=== PATIENT | male | born 1945 | race Asian ===

== ENCOUNTER 2018-07-16 16:50 | Inpatient (IN) | payer OTHER, MEDICARE ==
[~2018-07-16] VITALS: Ht 165.1 cm; Wt 65.3 kg
[2018-07-16 18:02] LABS: BASOPHILS # (AUTO) 0.02 x10^3/uL (0-0.1); BASOPHILS % (AUTO) 0 % (0-1); EOSINOPHILS # (AUTO) 0.09 x10^3/uL (0-0.4); EOSINOPHILS % (AUTO) 1 % (1-7); LYMPHOCYTES # (AUTO) 1.46 x10^3/uL (1-3.4); LYMPHOCYTES % (AUTO) 22 % (22-44); MD NO; MEAN CORPUSCULAR HEMOGLOBIN 30.9 pg (27.5-34.5); MEAN CORPUSCULAR HGB CONC 33.6 g/dL (33.2-36.2); MEAN CORPUSCULAR VOLUME 91.8 fL (81-97); MEAN PLATELET VOLUME 7.1 fL (7.4-10.4); MONOCYTES # (AUTO) 0.68 x10^3/uL (0.2-0.8); MONOCYTES % (AUTO) 10 % (2-9); NEUTROPHILS # (AUTO) 4.52 x10^3/uL (1.8-6.8); NEUTROPHILS % (AUTO) 67 % (42-75); PLATELET COUNT 210 x10^3/uL (130-400); RED BLOOD COUNT 4.54 x10^6/uL (4.38-5.82); RED CELL DISTRIBUTION WIDTH 13.6 % (9.4-14.8)
[2018-07-16 18:11] LABS: ALBUMIN 3.9 g/dL (3.4-5.0); ANION GAP 9 mmol/L (5-15); CALCIUM 8.3 mg/dL (8.5-10.1); CHLORIDE 106 mmol/L (98-107)
[2018-07-16 18:16] LABS: ALANINE AMINOTRANSFERASE 40 U/L (12-78); ALKALINE PHOSPHATASE 43 U/L (45-117); BILIRUBIN,TOTAL 0.5 mg/dL (0.2-1.0); CREATININE 0.89 mg/dL (0.7-1.3); TOTAL PROTEIN 7.1 g/dL (6.4-8.2); TROPONIN I < 0.015 ng/mL (0.000-0.045)
[2018-07-16 18:24] LABS: MICROSCOPIC NOT IND
[2018-07-16] MEDS ORDERED: DEXTROSE 50%, 50ML SYRINGE ONE (18:29)
[2018-07-16 18:30] LABS: CULTURE INDICATED? NO
[2018-07-16] MEDS ORDERED: DEXTROSE 50%, 50ML SYRINGE IVPush ONE (18:30)
[2018-07-16] MEDS ORDERED: D5%-0.45% NACL 1,000 ML IV SCH ×2 (19:30)
[2018-07-16] MEDS ORDERED: METF500T17 PO (20:02)
[2018-07-16] MEDS ORDERED: HIGH CHOLESTEROL (20:02)
[2018-07-16] MEDS ORDERED: LISI-170 PO (20:02)
[2018-07-16] MEDS ORDERED: DEXTROSE 50%, 50ML SYRINGE IVPush PRN (21:00)
[2018-07-16] MEDS ORDERED: DEXTROSE 4 GM TAB.CHEW PO PRN (21:00)
[2018-07-16] MEDS ORDERED: GLUCAGON 1 MG IM PRN (21:00)
[2018-07-16] MEDS ORDERED: hydrALAzine 20 MG/ML, 1ML IVPush PRN (21:00)
[2018-07-16] MEDS ORDERED: ONDANSETRON ODT 4 MG PO PRN (21:00)
[2018-07-16] MEDS ORDERED: DOCUSATE 100 MG CAPSULE PO PRN (21:00)
[2018-07-16 21:31] LABS: HEMOGLOBIN A1C 6.5 % (4.2-6.3)
[2018-07-16] MEDS: SODIUM CHLORIDE FLUSH 10ML SYR IVF SCH (21:43)
[2018-07-16] MEDS: D5%-0.45% NACL 1,000 ML IV SCH (21:43)
[2018-07-16] MEDS: ENOXAPARIN 40 MG/0.4 ML SQ SCH (21:44)
[2018-07-16 21:46] VITALS: BP 128/72
[2018-07-16 22:52] VITALS: BP 128/72
[2018-07-17 00:05] VITALS: BP 171/79
[2018-07-17 00:52] VITALS: BP 156/75
[2018-07-17] MEDS: D5%-0.45% NACL 1,000 ML IV SCH (05:47)
[2018-07-17] MEDS: LISINOPRIL 20 MG TABLET PO SCH (08:11)
[2018-07-17] MEDS: SODIUM CHLORIDE FLUSH 10ML SYR IVF SCH ×2 (08:12→20:13)
[2018-07-17 08:14] VITALS: BP 161/81
[2018-07-17 15:12] VITALS: BP 143/78
[2018-07-17] MEDS: AMLODIPINE 2.5 MG TABLET PO SCH (15:47)
[2018-07-17 19:00] VITALS: BP 127/75
[2018-07-17] MEDS: ENOXAPARIN 40 MG/0.4 ML SQ SCH (20:12)
[2018-07-17] MEDS ORDERED: D5%-0.45% NACL 1,000 ML IV SCH (20:33)
[2018-07-18 00:23] VITALS: BP 141/81
[2018-07-18 07:34] VITALS: BP 156/88
[2018-07-18] MEDS: SODIUM CHLORIDE FLUSH 10ML SYR IVF SCH (09:06)
[2018-07-18] MEDS: LISINOPRIL 20 MG TABLET PO SCH (09:06)
[2018-07-18] MEDS: AMLODIPINE 2.5 MG TABLET PO SCH (09:06)
[2018-07-18] MEDS ORDERED: AMLO2.5T3 PO (09:42)
== END 2018-07-18 11:11 | disposition home or self-care (01) | DRG 637 ==
LOC: ED 19:36 → EDIP 19:45 → 4WST 20:45 → DCLOUNGE 07-18 11:00
PROVIDERS: ADMIT Internal Medicine; ATTEND Internal Medicine
DX: E11.649 Type 2 diabetes mellitus with hypoglycemia without coma (principal); G93.41 Metabolic encephalopathy; I10 Essential (primary) hypertension; E78.5 Hyperlipidemia, unspecified; Z79.84 Long term (current) use of oral hypoglycemic drugs; Z79.899 Other long term (current) drug therapy
CPT/HCPCS: 36415; 71045; 80053; 81003; 82962; 83036; 84484; 84681; 85025; 87040; 93005; 96361; 96374; 99291; G0378; J1650